=== PATIENT | female | born 1975 | race Caucasian/White ===

== ENCOUNTER 2018-04-25 18:18 | Inpatient (IN) ==
[2018-04-25] MEDS ORDERED: *HR* FentaNYL (PF) 100 MCG/2 ML VIAL IVP ONE (18:28)
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
[2018-04-25] MEDS ORDERED: *HR* HYDROmorphone (PF) 1 MG/ML SYRINGE IVP ONE (19:32)
[2018-04-25] MEDS ORDERED: Naloxone 0.4 MG/ML INJ IVP PRN (20:21)
[2018-04-25] MEDS ORDERED: *HR* OxyCODONE Immed Rel 5 MG TABLET PO PRN (20:21)
[2018-04-25] MEDS ORDERED: Ibuprofen 400 MG TABLET PO PRN (20:21)
[2018-04-25] MEDS ORDERED: Ondansetron 4 MG/2 ML VIAL IVP PRN (20:29)
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
[2018-04-25] MEDS: 0.9 % Sodium Chloride 1,000 ML IVC SCH (21:21)
[2018-04-25 21:42] LABS: Alanine Aminotransferase 14 Units/L (7-52); Albumin 4.2 g/dL (3.5-5.7); Albumin/Globulin Ratio 1.6 (1.1-2.2); Alkaline Phosphatase 73 Units/L (34-104); Aspartate Amino Transferase 17 Units/L (13-39); BUN/Creatinine Ratio 13 (6-26); Bilirubin,Total 0.4 mg/dL (0.3-1.0); Blood Urea Nitrogen 9 mg/dL (6-20); Carbon Dioxide 24 mEq/L (23-29); Chloride 104 mEq/L (98-107); Globulin 2.6 g/dL (2.4-3.5); Glucose 109 mg/dL (70-105); INR 1.1; Magnesium 1.7 mg/dL (1.6-2.6); Osmolality,Calculated 285 (280-300); Potassium 3.5 mEq/L (3.5-5.1); Prothrombin Time 11.9 Seconds (9.4-12.1); Sodium 138 mEq/L (136-145); Total Protein 6.8 g/dL (6.4-8.9); eGFR For African Americans > 60 (> 60); eGFR For Non-African Americans > 60 (> 60)
[2018-04-25 21:44] LABS: Activated Partial Thrombo Time 27.6 Seconds (26.0-36.0)
[2018-04-25 22:26] LABS: Basophils % 0.2 %; Hematocrit 39.5 % (35.3-44.9); Hemoglobin 13.3 g/dL (11.5-15.4); Immature Granulocytes % 1.6 % (0-4); Lymphocytes # 1.3 K/mcL (0.6-4.6); Lymphocytes % 7.2 %; Mean Corpuscular HGB Conc 33.7 g/dL (31.6-35.5); Mean Corpuscular Hemoglobin 28.9 pg (28.0-33.3); Mean Corpuscular Volume 85.7 fL (83.0-100.0); Mean Platelet Volume 10.5 fL (9.4-12.4); Monocytes # 0.8 K/mcL (0.0-1.3); Monocytes % 4.6 %; Neutrophils # 15.2 K/mcL (1.6-8.9); Platelet Count 194 K/mcL (140-400); Red Blood Count 4.61 M/mcL (3.82-4.97); Red Cell Distribution Width 13.2 % (11.5-14.5); Segmented Neutrophils % 86.4 %
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
[2018-04-26] MEDS: *HR* FentaNYL (PF) 100 MCG/2 ML VIAL IVP PRN ×6 (00:27→20:43)
[2018-04-26] MEDS: *HR* OxyCODONE Immed Rel 5 MG TABLET PO PRN ×4 (03:47→19:45)
[2018-04-26] MEDS ORDERED: *HR* Heparin 5,000 UNIT/ML VIAL SQ SCH (06:00)
[2018-04-26] MEDS: 0.9 % Sodium Chloride 1,000 ML IVC SCH (08:38)
--- NOTE | 2018-04-26 14:35 | Anesthesia Evaluation PreOp ---
<Domi Silveira - Last Filed: 04/26/18 14:33> Date of Encounter: 04/26/18 Time of Encounter: 14:33 - Past History Planned Operation: Left Femur IM nail Cardiac History: Denies any Significant Hx Pulmonary History: Denies Any Significant HX [employer] ROB[employer]ICIST History: Denies Any Significant HX Anesthesia History: No Prior Anesthetic Complications, Past Anesthesia (tubal ligation, BSO) Alcohol Use: rarely Drug use: none Medications and Allergies No Known Home Drugs 04/25/18 [History] 3 Allergy/AdvReac Type Severity Reaction Status Date / Time acetaminophen [From Vicodin] Allergy Itching Verified 04/25/18 18:30 hydrocodone [From Vicodin] Allergy Itching Verified 04/25/18 18:30 tramadol [From Ultram] Allergy Hives Verified 04/25/18 18:30 - Meds/Allergy Pre-op Review Medications Reviewed: Yes Allergies Reviewed: Yes Beta Blockers on Current Med List: No Anesthesia Results - Labs 04/25/18 21:04 04/25/18 21:04 Anesthesia Exam Vital Signs/O2 Sat, Most Current Temp Pulse Resp BP Pulse Ox 98.5 F 84 16 121/72 99 04/26/18 14:26 04/26/18 14:26 04/26/18 14:26 04/26/18 14:26 04/26/18 14:26 Height: 1.6m Weight: 80kg NPO (# of Hours): >8 - HEENT Pupil (Motor): Pupils equal, EOMI Mallampati: II Teeth: Normal Oral Opening: Greater than 3 - [employer]IST LOC: Oriented [employer] Motor: Normal RUE, Normal LUE, Normal RLE, Normal LLE, Normal Face [employer] Sensory: Normal: RUE, LUE, RLE, LLE, Face - Cardiac Rhythm: Regular - Pulmonary Breath Sounds: bilateral Clear Respiratory Effort: Symmetrical Anesthesia Assess/Plan ASA Score: 2 Modified Smithwick Scale for Level of Consciousness: Cooperative, oriented, and tranquil Anesthetic Plan: General Monitoring Plan: Standard Monitors Recovery Plan: PACU <Enoch Castano - Last Filed: 04/26/18 15:06> Date of Encounter: 04/26/18 - Past History Cardiac History: Denies any Significant Hx Pulmonary History: Denies Any Significant HX [employer]IST History: Denies Any Significant HX Anesthesia History: No Prior Anesthetic Complications, Past Anesthesia : No Test: Negative Alcohol Use: rarely Drug use: none - Meds/Allergy Pre-op Review Medications Reviewed: Yes Allergies Reviewed: Yes Beta Blockers on Current Med List: No Anesthesia Results - Labs 04/25/18 21:04 04/25/18 21:04 Laboratory Tests 04/26/18 14:37 Urine Test Negative Anesthesia Exam - HEENT Pupil (Motor): Pupils equal, EOMI Mallampati: II Teeth: Normal Oral Opening: Greater than 3 - [employer] ROB[employer]ICIST LOC: Oriented [employer]IST Motor: Normal RUE, Normal LUE, Normal RLE, Normal LLE, Normal Face [employer]IST Sensory: Normal: RUE, LUE, RLE, LLE, Face - Cardiac Rhythm: Regular JVD: No Carotid Bruit: No - Pulmonary Breath Sounds: bilateral Clear Respiratory Effort: Symmetrical Anesthesia Assess/Plan ASA Score: 2 Modified Smithwick Scale for Level of Consciousness: Cooperative, oriented, and tranquil Anesthetic Plan: General Monitoring Plan: Standard Monitors Recovery Plan: PACU (Discussed GA, agrees to proceed)
--- NOTE | 2018-04-26 14:44 | Internal Med Progress Note ---
Date of Encounter: 04/26/18 Time of Encounter: 14:42 - Assessment and plan (1) Left femoral shaft fracture Current Visit: Yes Status: Acute Assessment and plan: Orthopedic surgery consulted; appreciate input. Plan for intramedullary nailing of left femoral distal third diaphyseal fracture today. Will defer pain control, therapy, and diet post-op to orthopedic surgery. Recheck labwork in AM. Qualifiers: Encounter type: initial encounter Fracture type: closed Fracture morphology: comminuted Fracture alignment: displaced Qualified Code(s): S72.352A - Displaced comminuted fracture of shaft of left femur, initial encounter for closed fracture (2) DVT prophylaxis Current Visit: Yes Status: Acute Assessment and plan: Continue SCDs for now. Will defer starting anticoagulation post-op to orthopedic surgery. - Time Spent With Patient Total time spent is greater than 50% in coordination of care (as documented) at patient's floor/unit and/or counseling patient: less than 15 minutes - Subjective Interval history: Patient had no acute events overnight. She is having some "throbbing and cramping" in her left leg. She is on her way to the OR in a little bit for intramedullary nailing of left femoral distal third diaphyseal fracture by orthopedic surgery. She denies fever, chills, chest pain, SOB, nausea, vomiting , and abdominal pain. She has no other complaints at this time. - Constitutional Vitals: Temp Pulse Resp BP Pulse Ox 98.5 F 84 16 121/72 99 04/26/18 14:26 04/26/18 14:26 04/26/18 14:26 04/26/18 14:26 04/26/18 14:26 General appearance: Present: cooperative, A&O X 3, pleasant, no acute distress, answers questions appropriately - Respiratory Respiratory exam: Present: CTAB. Absent: accessory muscle use, rales, rhonchi, wheezes Additional comments: Normal WOB - Cardiovascular Cardiovascular exam: Present: RRR, +S1, +S2. Absent: diastolic murmur, gallop, rubs, systolic murmur Additional comments: No BLE edema - GI/Abdominal GI/Abdominal exam: Present: normal bowel sounds, soft. Absent: distended, hepatomegaly, mass, splenomegaly, tenderness - Extremities Exam Additional comments: Left leg in bandaging, decreased ROM due to pain - Psychiatric Psychiatric exam: Present: normal affect, normal mood. Absent: agitated, anxious, depressed - Skin Skin exam: Present: dry, intact, warm. Absent: cyanosis, rash Internal Medicine: Result - Labs CBC & Chem 7: 04/25/18 21:04 04/25/18 21:04 Labs: Short CBC 04/25/18 Range/Units 21:04 WBC 17.7 H (4.3-11.1) K/mcL Hgb 13.3 (11.5-15.4) g/dL Hct 39.5 (35.3-44.9) % Plt Count 194 (140-400) K/mcL Neutrophils # 15.2 H (1.6-8.9) K/mcL BMP 04/25/18 21:04 Sodium 138 Potassium 3.5 Chloride 104 Carbon Dioxide 24 BUN 9 Creatinine 0.70 Glucose 109 H Calcium 9.0 Liver Function 04/25/18 Range/Units 21:04 Total Bilirubin 0.4 (0.3-1.0) mg/dL AST 17 (13-39) Units/L ALT 14 (7-52) Units/L Alkaline Phosphatase 73 (34-104) Units/L Albumin 4.2 (3.5-5.7) g/dL - ABG Interpretation ABG results: PT/INR, D-dimer PT 11.9 Seconds (9.4-12.1) 04/25/18 21:04 - VTE Documentation of Mechanical Device: Intermittent pneumatic compression device Consult Discharge Plan - Plan Referrals: Carmen Hernandez MD [Primary Care Provider] -
[2018-04-26] MEDS ORDERED: Famotidine 20 MG/2 ML VIAL ONE (15:11)
[2018-04-26] MEDS ORDERED: Acetaminophen IV 1,000 MG/100 ML INFUS..BTL ONE (15:11)
[2018-04-26] MEDS ORDERED: *HR* FentaNYL (PF) 100 MCG/2 ML VIAL ONE (16:58)
[2018-04-26] MEDS ORDERED: *HR* Midazolam HCl 2 MG/2 ML VIAL ONE (16:58)
[2018-04-26] MEDS ORDERED: Lidocaine -MPF 2% 2 ML VIAL ONE (16:58)
[2018-04-26] MEDS ORDERED: *HR* Propofol 200 MG/20 ML VIAL IVP ONE (16:58)
[2018-04-26] MEDS ORDERED: *HR* HYDROmorphone 2 MG TABLET PO PRN (17:01)
[2018-04-26] MEDS ORDERED: *HR* OxyCODONE Immed Rel 5 MG TABLET PO PRN (17:01)
[2018-04-26] MEDS ORDERED: Ondansetron 4 MG/2 ML VIAL ONE (17:03)
[2018-04-26] MEDS ORDERED: Dexamethasone 4 MG/ML VIAL ONE (17:03)
[2018-04-26] MEDS ORDERED: Ketorolac 30 MG/ML VIAL ONE (17:30)
--- NOTE | 2018-04-26 18:39 | Operative Note ---
Date of procedure: 04/26/18 Pre-op diagnosis: Displaced, comminuted fracture distal third left femur Post-op diagnosis: same Procedure: 1. Retrograde intramedullary nailing left femur 2. Fluoroscopic guidance for IM nailing left femur Implants: Synthes 11 mm x 340 mm retrograde femoral nail with 2 distal and 1 proximal locking screw Complications: None Anesthesia: NEGIN Surgeon: Ciaran Conner Was there an human resources benefits assistant present: No Estimated blood loss (cc): 150 Specimen: None Condition: stable (None) Disposition: PACU Procedure in Detail: Gross findings: Preoperative x-rays revealed a displaced minimally comminuted fracture of the distal third of the left femur. This was past the isthmus and just as the distal femur started to flare. Fracture was able to reduced and excellent alignment, anatomic in the AP view and slightly offset on the lateral view. This was stabilized with a retrograde femoral nail which was placed without difficulty. Procedure: Patient was taken the operating room and while in the hospital bed was administered a general anesthesia. Once adequate level anesthesia had been obtained patient was transferred to the fracture table. Right lower extremity was positioned out of harm's way and the left lower extremity was placed with a padded post behind the popliteal fossa. Fluoroscopy was introduced and used to guide the initial reduction which was accomplished with hyperflexing the knee creating traction and improving alignment. The left thigh and femur were then prepped and draped in normal standard fashion for surgery. Incision was made from the inferior pole of the patella to the proximal tibia. Dissection was carried through the subtendinous tissue to the level of the medial retinaculum which was opened immediately adjacent to the patella tendon. The joint was exposed through the infrapatellar fat pad. The intercondylar notch was identified an entrance hole was created anterior to the intercondylar notch. A ball-tipped guidewire was then passed up the femoral canal across the fracture site and into the more proximal femur to the level of the lesser trochanter. Nail length was measured and a 340 mm nail length was selected. At this time the canal was sequentially reamed with flexible reamers up to and including a size 12.5 mm. This gave excellent endosteal chatter in the isthmus. An 11 mm nail was selected, this was placed on the insertion jig passed over the wire and across the fracture site and into the more proximal femur. Guidewire was removed. Nail length and position was verified. At this time to distal locking screws were placed from a lateral to medial direction utilizing the nail guide. Fracture was allowed to compress. A single screw was then placed proximally allowing for compression. This is performed by freehand technique. Position of the implant and fracture were then all verified with multiplane are fluoroscopy. Wounds now irrigated and closed. The scope she irrigated with saline solution. The retinaculum was closed with running #1 Vicryl. Subcutaneous tissue was closed with multiple inverted interrupted 2-0 undyed Vicryl followed by skin approximation of the incision and the stab wounds for the screw insertions with stainless steel clips. Sterile dressings consisting of bacitracin Adaptic 4 x 4 's Kerlix Elfego wraps are applied with a Band-Aid applied proximal. Patient was now transferred from the operating table hospital bed, awakened from anesthesia , extubated and then transported to the postanesthesia care unit in stable and satisfactory condition. All sponge needle evidence for counts are correct. No specimens are sent for pathology.
--- NOTE | 2018-04-26 19:03 | Anesthesia Evaluation Post Op ---
Date of Encounter: 04/26/18 Time of Encounter: 19:00 - Vital Signs Vital Signs: Vital Signs/O2 Sat/Glucose, Most Current Temp Pulse Resp BP Pulse Ox 04/26/18 18:48 99.6 F 101 16 137/67 96 04/26/18 18:38 99.6 F 92 12 136/63 93 04/26/18 18:28 101 12 135/60 94 04/26/18 18:18 108 18 123/74 94 04/26/18 18:08 97.1 F L 96 20 130/84 98 - Lungs Lungs: Clear Ascult./Percussion - Airway Airway: Non-obstructed - Cardiovascular Regular Rate - Mental Status Mental Status: Alert & Oriented, Answers Appropriately - Pain Pain Scale: 0 - Nausea Vomiting Nausea Vomiting: Not Present - Hydration Hydration: Ice chips - Discharge PostOp Status: Transfer Patient to floor
[2018-04-26] MEDS ORDERED: Naloxone 0.4 MG/ML INJ IVP PRN (19:08)
[2018-04-26] MEDS ORDERED: Ondansetron 4 MG/2 ML VIAL IVP PRN (19:08)
[2018-04-27] MEDS ORDERED: ceFAZolin 2,000 MG in Water for inj. (sterile) 20 ML 10 ML IVP SCH
[2018-04-27] MEDS: *HR* FentaNYL (PF) 100 MCG/2 ML VIAL IVP PRN ×3 (00:37→16:57)
[2018-04-27 02:25] LABS: Basophils % 0.1 %; Hematocrit 38.8 % (35.3-44.9); Immature Granulocytes % 1.3 % (0-4); Lymphocytes # 0.8 K/mcL (0.6-4.6); Lymphocytes % 5.8 %; Mean Corpuscular HGB Conc 33.5 g/dL (31.6-35.5); Mean Corpuscular Volume 86.6 fL (83.0-100.0); Mean Platelet Volume 10.2 fL (9.4-12.4); Monocytes # 0.3 K/mcL (0.0-1.3); Monocytes % 2.3 %; Neutrophils # 12.1 K/mcL (1.6-8.9); Platelet Count 173 K/mcL (140-400); Red Blood Count 4.48 M/mcL (3.82-4.97); Segmented Neutrophils % 90.5 %
[2018-04-27 02:43] LABS: BUN/Creatinine Ratio 8 (6-26); Blood Urea Nitrogen 7 mg/dL (6-20); Calcium 8.8 mg/dL (8.6-10.3); Carbon Dioxide 23 mEq/L (23-29); Chloride 102 mEq/L (98-107); Glucose 212 mg/dL (70-105); Osmolality,Calculated 284 (280-300); Potassium 4.1 mEq/L (3.5-5.1); Sodium 135 mEq/L (136-145); eGFR For African Americans > 60 (> 60); eGFR For Non-African Americans > 60 (> 60)
[2018-04-27] MEDS: *HR* OxyCODONE Immed Rel 5 MG TABLET PO PRN ×4 (04:09→21:00)
[2018-04-27] MEDS: Ibuprofen 400 MG TABLET PO PRN ×3 (07:56→21:00)
--- NOTE | 2018-04-27 10:22 | Orthopedics Progress Note ---
Date of Encounter: 04/27/18 Time of Encounter: 10:19 Subjective Principal diagnosis: Left femur fracture Interval history: 04/27/2018. Patient postop day #1 (less than 24 hours) from IM nailing of left femur fracture. Patient has been out of bed to chair. Having significant pain with poor pain control thus far. Complains of a burning sensation about the knee. Vital signs are stable. Patient is afebrile. Dressings are clean and dry. Distal neurovascular exam is intact. Hemoglobin is 13. White blood cell count is elevated but lower than preop. Platelet count is normal. Impression: POD #1 retrograde nailing left femur fracture Recommendation: Discussed with the patient that we can modify her medications but we will probably not make her pain-free, rather we discussed pain management. We will shortening her dosing interval 2 every 4 hours for oxycodone and increase her range from 5-10 mg. Discuss with her that she needs to be conscientious of about being upright either in the chair or ambulatory. Objective Vital signs: Vital Signs Temp Pulse Resp BP Pulse Ox 04/27/18 08:02 96 04/27/18 06:35 98.2 F 87 16 134/68 96 04/27/18 03:30 98.3 F 99 16 130/65 95 04/26/18 23:27 98.6 F 88 16 120/82 95 04/26/18 21:40 98.6 F 114 14 119/65 93 04/26/18 20:31 98.6 F 90 16 122/85 95 04/26/18 19:52 95 04/26/18 19:37 99.3 F 97 16 127/85 95 04/26/18 19:05 98.7 F 102 16 142/84 92 04/26/18 18:48 99.6 F 101 16 137/67 96 04/26/18 18:38 99.6 F 92 12 136/63 93 04/26/18 18:28 101 12 135/60 94 04/26/18 18:18 108 18 123/74 94 04/26/18 18:08 97.1 F L 96 20 130/84 98 04/26/18 14:26 98.5 F 84 16 121/72 99 Intake and Output 04/26/18 04/27/18 04/27/18 23:59 07:59 15:59 Intake Total 1400 / 1400 Output Total 150 / 150 1400 / 1400 Balance -150 / -150 0 / 0 Intake: IV Fluids 1100 / 1100 Ancef 2,000 MG In 0.9 % Sodium 100 / 100 Chloride 100 ML @ 200 mls/hr IVPB Q8HR YA Rx#:[id number] Oral 300 / 300 Output: Estimated Blood Loss 150 / 150 Catheter 1400 / 1400 - Labs CBC & BMP: 04/27/18 01:05 04/27/18 01:05 Labs: Abnormal lab results WBC 13.4 K/mcL (4.3-11.1) H 04/27/18 01:05 Neutrophils # 12.1 K/mcL (1.6-8.9) H 04/27/18 01:05 Sodium 135 mEq/L (136-145) L 04/27/18 01:05 Glucose 212 mg/dL (70-105) H 04/27/18 01:05 - VTE Documentation of Mechanical Device: Intermittent pneumatic compression device Consult Discharge Plan - Plan Referrals: Carmen Hernandez MD [Primary Care Provider] -
[2018-04-27] MEDS ORDERED: *HR* OxyCODONE Immed Rel 5 MG TABLET PO SCH (12:00)
--- NOTE | 2018-04-27 13:49 | Internal Med Progress Note ---
Date of Encounter: 04/27/18 Time of Encounter: 13:47 - Assessment and plan (1) Left femoral shaft fracture Current Visit: Yes Status: Acute Assessment and plan: Orthopedic surgery consulted; appreciate input. POD #1 s/p intramedullary nailing of left femoral distal third diaphyseal fracture. Will defer pain control to orthopedics. Pain is now better controlled. Continue PT/OT. Recheck labwork in AM. Plan for discharge home once pain better controlled and cleared by orthopedic surgery. Qualifiers: Encounter type: initial encounter Fracture type: closed Fracture morphology: comminuted Fracture alignment: displaced Qualified Code(s): S72.352A - Displaced comminuted fracture of shaft of left femur, initial encounter for closed fracture (2) DVT prophylaxis Current Visit: Yes Status: Acute Assessment and plan: Start lovenox 40 mg SQ QD. - Time Spent With Patient Total time spent is greater than 50% in coordination of care (as documented) at patient's floor/unit and/or counseling patient: less than 15 minutes - Subjective Interval history: Patient had no acute events overnight. She is POD #1 s/p IM nailing of left femur fracture. She states that she still has some pain, but improved from this morning, after pain medication frequency was increased. She denies fever, chills, chest pain, SOB, nausea, vomiting, and abdominal pain. She has no other complaints at this time. - Constitutional Vitals: Temp Pulse Resp BP Pulse Ox 98.2 F 87 16 134/68 96 04/27/18 06:35 04/27/18 06:35 04/27/18 06:35 04/27/18 06:35 04/27/18 08:02 General appearance: Present: cooperative, A&O X 3, pleasant, no acute distress, answers questions appropriately - Respiratory Respiratory exam: Present: CTAB. Absent: accessory muscle use, rales, rhonchi, wheezes Additional comments: Normal WOB - Cardiovascular Cardiovascular exam: Present: RRR, +S1, +S2. Absent: diastolic murmur, gallop, rubs, systolic murmur Additional comments: No BLE edema - GI/Abdominal GI/Abdominal exam: Present: normal bowel sounds, soft. Absent: distended, hepatomegaly, mass, splenomegaly, tenderness - Extremities Exam Additional comments: Left hip/leg in bandaging - Psychiatric Psychiatric exam: Present: normal affect, normal mood. Absent: agitated, anxious, depressed - Skin Skin exam: Present: dry, warm. Absent: cyanosis, erythema, rash Internal Medicine: Result - Labs CBC & Chem 7: 04/27/18 01:05 04/27/18 01:05 Labs: Short CBC 04/27/18 Range/Units 01:05 WBC 13.4 H (4.3-11.1) K/mcL Hgb 13.0 (11.5-15.4) g/dL Hct 38.8 (35.3-44.9) % Plt Count 173 (140-400) K/mcL Neutrophils # 12.1 H (1.6-8.9) K/mcL BMP 04/27/18 01:05 Sodium 135 L Potassium 4.1 Chloride 102 Carbon Dioxide 23 BUN 7 Creatinine 0.91 Glucose 212 H Calcium 8.8 - ABG Interpretation ABG results: PT/INR, D-dimer PT 11.9 Seconds (9.4-12.1) 04/25/18 21:04 - Impressions Impressions Femur X-Ray 04/26/18 15:50 IMPRESSION: Intraprocedural fluoroscopic spot images as above. See separate procedure report for more information. D/ / Facundo Black MD / Facundo Black MD Interpreting Provider: Facundo Black MD Fluoroscopy 04/26/18 15:50 IMPRESSION: Intraprocedural fluoroscopic spot images as above. See separate procedure report for more information. D/ / Facundo Black MD / Facundo Black MD Interpreting Provider: Facundo Black MD Consult Discharge Plan - Plan Referrals: Carmen Hernandez MD [Primary Care Provider] -
[2018-04-27] MEDS: *HR* Enoxaparin 40 MG/0.4 ML SYRINGE SQ SCH (14:25)
[2018-04-28 01:05] LABS: Basophils % 0.2 %; Eosinophils # 0.1 K/mcL (0.0-0.6); Eosinophils % 0.7 %; Hematocrit 31.9 % (35.3-44.9); Hemoglobin 10.4 g/dL (11.5-15.4); Immature Granulocytes % 1.5 % (0-4); Lymphocytes # 2.6 K/mcL (0.6-4.6); Lymphocytes % 22.4 %; Mean Corpuscular HGB Conc 32.6 g/dL (31.6-35.5); Mean Corpuscular Volume 85.8 fL (83.0-100.0); Monocytes # 0.7 K/mcL (0.0-1.3); Monocytes % 6.3 %; Neutrophils # 7.9 K/mcL (1.6-8.9); Platelet Count 150 K/mcL (140-400); Red Blood Count 3.72 M/mcL (3.82-4.97); Red Cell Distribution Width 13.3 % (11.5-14.5); Segmented Neutrophils % 68.9 %
[2018-04-28 01:22] LABS: BUN/Creatinine Ratio 17 (6-26); Blood Urea Nitrogen 13 mg/dL (6-20); Calcium 8.4 mg/dL (8.6-10.3); Carbon Dioxide 24 mEq/L (23-29); Chloride 106 mEq/L (98-107); Glucose 121 mg/dL (70-105); Osmolality,Calculated 287 (280-300); Potassium 3.5 mEq/L (3.5-5.1); Sodium 138 mEq/L (136-145); eGFR For African Americans > 60 (> 60); eGFR For Non-African Americans > 60 (> 60)
[2018-04-28] MEDS: *HR* OxyCODONE Immed Rel 5 MG TABLET PO PRN ×5 (02:33→23:19)
[2018-04-28] MEDS: *HR* FentaNYL (PF) 100 MCG/2 ML VIAL IVP PRN ×2 (06:26→11:58)
[2018-04-28] MEDS: Ibuprofen 400 MG TABLET PO PRN ×3 (06:51→21:12)
[2018-04-28] MEDS: *HR* Enoxaparin 40 MG/0.4 ML SYRINGE SQ SCH (08:39)
--- NOTE | 2018-04-28 13:31 | Orthopedics Progress Note ---
Date of Encounter: 04/28/18 Time of Encounter: 13:27 Subjective Principal diagnosis: Left femur fracture Interval history: 04/27/2018. Patient postop day #1 (less than 24 hours) from IM nailing of left femur fracture. Patient has been out of bed to chair. Having significant pain with poor pain control thus far. Complains of a burning sensation about the knee. Vital signs are stable. Patient is afebrile. Dressings are clean and dry. Distal neurovascular exam is intact. Hemoglobin is 13. White blood cell count is elevated but lower than preop. Platelet count is normal. Impression: POD #1 retrograde nailing left femur fracture Recommendation: Discussed with the patient that we can modify her medications but we will probably not make her pain-free, rather we discussed pain management. We will shortening her dosing interval 2 every 4 hours for oxycodone and increase her range from 5-10 mg. Discuss with her that she needs to be conscientious of about being upright either in the chair or ambulatory. 04/28/2018. Patient POD #2 IM nailing left femur fracture. Patient continues to complain of significant amount of pain. Patient has been doing little range of motion exercises other than some ankle work. Complaining of a sensation of something moving along the medial side of the knee. Discussed the surgical procedure in the appearance of the implants with the patient. Vital signs are stable. Patient is afebrile. All incisions are clean dry and healthy. No knee effusion. Minor fullness in the thigh. Hemoglobin has dropped to 10.4. White cell count has dropped to 11.5. Platelet count remains normal though trending down, currently 150. Impression: POD #2 retrograde IM nailing left femur Recommendation: Discussed with the patient she has to be very aggressive in working on range of motion of her hip and knee as well as her ankle. He also began had a long discussion of pain management. Have encouraged her to not utilize parenteral narcotics but to consistently use oral medications as is the only way she is going be able to go home. Also discussed with the patient that she may need a short-term rehabilitation stay due to her limited ambulation ability at this time and the possibility of not having adequate help at home. environmental services technician to work potential discharge options. Objective Vital signs: Vital Signs Temp Pulse Resp BP Pulse Ox 04/28/18 08:43 96 04/28/18 06:27 97.5 F L 91 17 116/73 96 04/28/18 03:23 97.7 F 94 16 108/64 95 04/27/18 23:01 98.4 F 109 16 128/69 97 Intake and Output 04/27/18 04/28/18 04/28/18 23:59 07:59 15:59 Intake Total 0 / 0 200 / 200 240 / 240 Balance 0 / 0 200 / 200 240 / 240 Intake: Oral 0 / 0 200 / 200 240 / 240 Other: Meal Breakfast Percent of Meal Consumed 50% # Voids 1 1 Incision: clean and dry - Labs CBC & BMP: 04/28/18 00:38 04/28/18 00:38 Labs: Abnormal lab results WBC 11.5 K/mcL (4.3-11.1) H 04/28/18 00:38 RBC 3.72 M/mcL (3.82-4.97) L 04/28/18 00:38 Hgb 10.4 g/dL (11.5-15.4) L D 04/28/18 00:38 Hct 31.9 % (35.3-44.9) L 04/28/18 00:38 Glucose 121 mg/dL (70-105) H 04/28/18 00:38 Calcium 8.4 mg/dL (8.6-10.3) L 04/28/18 00:38 - VTE Documentation of Mechanical Device: Intermittent pneumatic compression device Consult Discharge Plan - Plan Referrals: Carmen Hernandez MD [Primary Care Provider] -
--- NOTE | 2018-04-28 13:43 | Internal Med Progress Note ---
Date of Encounter: 04/28/18 Time of Encounter: 13:38 - Assessment and plan (1) Left femoral shaft fracture Current Visit: Yes Status: Acute Assessment and plan: Orthopedic surgery consulted; appreciate input. POD #2 s/p intramedullary nailing of left femoral distal third diaphyseal fracture. Will defer pain control to orthopedics. Pain is now better controlled. Continue PT/OT. Recheck labwork in AM. Discussed case with Dr. Conner today; plan for discharge to acute rehab once pain better controlled and cleared by orthopedic surgery. SW consulted for placement. Qualifiers: Encounter type: initial encounter Fracture type: closed Fracture morphology: comminuted Fracture alignment: displaced Qualified Code(s): S72.352A - Displaced comminuted fracture of shaft of left femur, initial encounter for closed fracture (2) Anemia Current Visit: Yes Status: Acute Assessment and plan: H/H trending down. Asymptomatic at this time. Transfuse for hemoglobin < 7.0 and/or symptomatic. Recheck CBC in AM. Consider holding lovenox if H/H continues to drop. Qualifiers: Anemia type: unspecified type Qualified Code(s): D64.9 - Anemia, unspecified (3) DVT prophylaxis Current Visit: Yes Status: Acute Assessment and plan: Continue SQ lovenox. - Time Spent With Patient Total time spent is greater than 50% in coordination of care (as documented) at patient's floor/unit and/or counseling patient: less than 15 minutes - Subjective Interval history: Patient had no acute events overnight. She is POD #2 s/p IM nailing of left femur fracture. She states that she still has some pain, but has been able to get up to chair today. She denies fever, chills, chest pain, SOB, nausea, vomiting, and abdominal pain. She has no other complaints at this time. - Constitutional Vitals: Temp Pulse Resp BP Pulse Ox 97.5 F L 91 17 116/73 96 04/28/18 06:27 04/28/18 06:27 04/28/18 06:27 04/28/18 06:27 04/28/18 08:43 General appearance: Present: cooperative, A&O X 3, pleasant, no acute distress, answers questions appropriately - Respiratory Respiratory exam: Present: CTAB. Absent: accessory muscle use, rales, rhonchi, wheezes Additional comments: Normal WOB - Cardiovascular Cardiovascular exam: Present: RRR, +S1, +S2. Absent: diastolic murmur, gallop, rubs, systolic murmur Additional comments: No BLE edema - GI/Abdominal GI/Abdominal exam: Present: normal bowel sounds, soft. Absent: distended, hepatomegaly, mass, splenomegaly, tenderness - Psychiatric Psychiatric exam: Present: normal affect, normal mood. Absent: agitated, anxious, depressed - Skin Skin exam: Present: dry, intact, warm. Absent: cyanosis, rash Internal Medicine: Result - Labs CBC & Chem 7: 04/28/18 00:38 04/28/18 00:38 Labs: Short CBC 04/28/18 Range/Units 00:38 WBC 11.5 H (4.3-11.1) K/mcL Hgb 10.4 L D (11.5-15.4) g/dL Hct 31.9 L (35.3-44.9) % Plt Count 150 (140-400) K/mcL Neutrophils # 7.9 (1.6-8.9) K/mcL BMP 04/28/18 00:38 Sodium 138 Potassium 3.5 Chloride 106 Carbon Dioxide 24 BUN 13 Creatinine 0.76 Glucose 121 H Calcium 8.4 L - ABG Interpretation ABG results: PT/INR, D-dimer PT 11.9 Seconds (9.4-12.1) 04/25/18 21:04 Consult Discharge Plan - Plan Referrals: Carmen Hernandez MD [Primary Care Provider] -
[2018-04-29 02:38] LABS: Basophils % 0.4 %; Eosinophils # 0.2 K/mcL (0.0-0.6); Eosinophils % 1.8 %; Immature Granulocytes % 3.6 % (0-4); Lymphocytes # 2.8 K/mcL (0.6-4.6); Lymphocytes % 30.7 %; Mean Corpuscular HGB Conc 33.3 g/dL (31.6-35.5); Mean Corpuscular Hemoglobin 29.1 pg (28.0-33.3); Mean Corpuscular Volume 87.3 fL (83.0-100.0); Mean Platelet Volume 9.7 fL (9.4-12.4); Monocytes # 0.5 K/mcL (0.0-1.3); Monocytes % 5.8 %; Neutrophils # 5.2 K/mcL (1.6-8.9); Platelet Count 158 K/mcL (140-400); Red Blood Count 3.78 M/mcL (3.82-4.97); Red Cell Distribution Width 13.3 % (11.5-14.5); Segmented Neutrophils % 57.7 %
[2018-04-29] MEDS: Ibuprofen 400 MG TABLET PO PRN (02:53)
[2018-04-29 03:33] LABS: BUN/Creatinine Ratio 25 (6-26); Blood Urea Nitrogen 16 mg/dL (6-20); Calcium 8.7 mg/dL (8.6-10.3); Carbon Dioxide 27 mEq/L (23-29); Chloride 101 mEq/L (98-107); Glucose 118 mg/dL (70-105); Osmolality,Calculated 284 (280-300); Potassium 3.5 mEq/L (3.5-5.1); Sodium 136 mEq/L (136-145); eGFR For African Americans > 60 (> 60); eGFR For Non-African Americans > 60 (> 60)
[2018-04-29] MEDS: *HR* OxyCODONE Immed Rel 5 MG TABLET PO PRN ×5 (05:12→22:50)
[2018-04-29] MEDS: *HR* Enoxaparin 40 MG/0.4 ML SYRINGE SQ SCH (09:20)
--- NOTE | 2018-04-29 16:29 | Discharge Summary ---
- NOTES TO OUTPATIENT PROVIDER Notes to Outpatient Provider: Follow up with acute rehab physician in 2-3 days after discharge. Recheck BMP and CBC at that time. Follow up with orthopedic surgery as directed. Date of Encounter: 04/29/18 Time of Encounter: 16:27 - Discharge Diagnosis (1) Left femoral shaft fracture Priority: Primary Status: Acute Qualifiers: Encounter type: initial encounter Fracture type: closed Fracture morphology: comminuted Fracture alignment: displaced Qualified Code(s): S72.352A - Displaced comminuted fracture of shaft of left femur, initial encounter for closed fracture (2) Anemia Priority: Secondary Status: Acute Qualifiers: Anemia type: unspecified type Qualified Code(s): D64.9 - Anemia, unspecified (3) DVT prophylaxis Priority: Secondary Status: Acute Hospital course: Ms. Appiah is a 43 year old female admitted for left femoral shaft fracture. She was admitted to orthopedic floor. Orthopedic surgery was consulted. Pain was controlled. She was taken to OR for intramedullary nailing of left femoral distal third diaphyseal fracture. She had some increased pain after surgery, and orthopedic surgery managed by changing pain medication regimen. PT/OT were consulted. She was encouraged to work on ROM exercises. It was determined that she would need short-term rehabilitation stay given her limited ambulation ability at this time and the possibility of not having adequate help at home. SW is working on placement. She is medically cleared for discharge today. She will follow up with acute rehab physician in 2-3 days after discharge. Repeat BMP and CBC can be checked at that time. She will follow up with orthopedic surgery as directed. Patient has met maximum benefit of this hospitalization and will be conditionally discharged to acute inpatient rehabilitation facility pending insurance approval in stable condition. Discharge discussed with: patient, family, nurse, social work - Time Spent with Patient Total time spent providing and/or coordinating discharge services: Greater than 30 minutes - Discharge Medications Prescriptions: OxyCODONE Immed Rel [Roxicodone 5 MG] 5 mg PO Q4HR PRN 4 Days #24 tablet PRN Reason: Severe Pain Ibuprofen [Motrin] 600 mg PO Q6HR PRN 4 Days #16 tablet PRN Reason: Mild Pain/Fever Home Medications: Ibuprofen [Motrin] 600 mg PO Q6HR PRN 4 Days #16 tablet 04/29/18 [Rx] OxyCODONE Immed Rel [Roxicodone 5 MG] 5 mg PO Q4HR PRN 4 Days #24 tablet [Rx] Allergies/Adverse Reactions: 3 Allergy/AdvReac Type Severity Reaction Status Date / Time acetaminophen [From Vicodin] Allergy Itching Verified 04/25/18 18:30 hydrocodone [From Vicodin] Allergy Itching Verified 04/25/18 18:30 tramadol [From Ultram] Allergy Hives Verified 04/25/18 18:30 Date of admission: 04/27/18 18:54 Primary care physician: Carmen Hernandez Consults: Orthopedic Surgery 04/28/18 13:44 Consult to Graphic Design Intern [CONS] Routine Reason for SW Consult: Acute Rehab Placement Discharging clinician: Donovan Gary Anticipated date of discharge: 04/29/18 - Constitutional Vitals: Temp Pulse Resp BP Pulse Ox 98.4 F 96 18 122/82 96 04/29/18 15:08 04/29/18 15:08 04/29/18 15:08 04/29/18 15:08 04/29/18 15:08 General appearance: Present: cooperative, A&O X 3, pleasant, no acute distress, answers questions appropriately - Respiratory Respiratory exam: Present: CTAB. Absent: accessory muscle use, rales, rhonchi, wheezes Additional comments: Normal WOB - Cardiovascular Cardiovascular exam: Present: RRR, +S1, +S2. Absent: diastolic murmur, gallop, rubs, systolic murmur Additional comments: No BLE edema - GI/Abdominal GI/Abdominal exam: Present: normal bowel sounds, soft. Absent: distended, hepatomegaly, mass, splenomegaly, tenderness - Psychiatric Psychiatric exam: Present: normal affect, normal mood. Absent: agitated, anxious, depressed - Skin Skin exam: Present: dry, warm. Absent: cyanosis, erythema, rash - Patient Status Disposition: Transfer Inpatient Rehab Fac Condition: Good Overall status at discharge: patient is progressing back to baseline - Discharge Instructions Follow Up With: Carmen Hernandez MD [Primary Care Provider] - Additional Instructions: Follow up with acute rehab physician in 2-3 days after discharge. Recheck BMP and CBC at that time. Follow up with orthopedic surgery as directed. - Diet and Activity Activity: as per physical therapy Diet: regular diet
--- NOTE | 2018-04-29 16:41 | Physician Discharge Referral ---
ExtendedCare Referral Info Transfer To: Acute Inpatient Rehabilitation Facility Provider in Charge after Transfer: Other (Acute Rehab Physician) Institutional Level of Care: Skilled - Diagnosis (1) Left femoral shaft fracture Priority: Primary Status: Acute (2) Anemia Priority: Secondary Status: Acute (3) DVT prophylaxis Priority: Secondary Status: Acute Expected Duration of Placement: 4-6 weeks Prognosis: Good Aware of Diagnosis: Patient, Family Aware of Prognosis: Patient, Family - Transfer Medications Prescriptions: OxyCODONE Immed Rel [Roxicodone 5 MG] 5 mg PO Q4HR PRN 4 Days #24 tablet PRN Reason: Severe Pain Ibuprofen [Motrin] 600 mg PO Q6HR PRN 4 Days #16 tablet PRN Reason: Mild Pain/Fever Home Medications: Ibuprofen [Motrin] 600 mg PO Q6HR PRN 4 Days #16 tablet 04/29/18 [Rx] OxyCODONE Immed Rel [Roxicodone 5 MG] 5 mg PO Q4HR PRN 4 Days #24 tablet [Rx] Allergies/Adverse Reactions: 3 Allergy/AdvReac Type Severity Reaction Status Date / Time acetaminophen [From Vicodin] Allergy Itching Verified 04/25/18 18:30 hydrocodone [From Vicodin] Allergy Itching Verified 04/25/18 18:30 tramadol [From Ultram] Allergy Hives Verified 04/25/18 18:30 - Respiratory Orders None Smoking Cessation: Smoking cessation has been advised. For more information, call the [place] Tobacco Quit Line at 1-490-QWNL-NOW. - Lab Orders Lab Orders: CBC (in 2-3 days after discharge), Other (include drug levels w/ frequency) (BMP in 2-3 days after discharge) - Advance Directives Code Status: Full Code - Mobility Orders Other (Per physical therapy) - Rehabiliation Orders Rehab Potential: Good Rehab Orders: ROM Exercises, Evaluation for Physical Therapy, Evaluation for Occupational Therapy - Diet Orders Regular CERTIFICATION: I certify that the transfer of the above named patient to an Extended Care Facility is necessary for the continuing treatment of the diagnosis listed. The above information is true and accurate reflection of patient's current condition. Confidential - Redisclosure prohibited without a patient's written consent.
--- NOTE | 2018-04-29 19:38 | Orthopedics Progress Note ---
Date of Encounter: 04/29/18 Time of Encounter: 19:33 Subjective Principal diagnosis: Left femur fracture Interval history: 04/27/2018. Patient postop day #1 (less than 24 hours) from IM nailing of left femur fracture. Patient has been out of bed to chair. Having significant pain with poor pain control thus far. Complains of a burning sensation about the knee. Vital signs are stable. Patient is afebrile. Dressings are clean and dry. Distal neurovascular exam is intact. Hemoglobin is 13. White blood cell count is elevated but lower than preop. Platelet count is normal. Impression: POD #1 retrograde nailing left femur fracture Recommendation: Discussed with the patient that we can modify her medications but we will probably not make her pain-free, rather we discussed pain management. We will shortening her dosing interval 2 every 4 hours for oxycodone and increase her range from 5-10 mg. Discuss with her that she needs to be conscientious of about being upright either in the chair or ambulatory. 04/28/2018. Patient POD #2 IM nailing left femur fracture. Patient continues to complain of significant amount of pain. Patient has been doing little range of motion exercises other than some ankle work. Complaining of a sensation of something moving along the medial side of the knee. Discussed the surgical procedure in the appearance of the implants with the patient. Vital signs are stable. Patient is afebrile. All incisions are clean dry and healthy. No knee effusion. Minor fullness in the thigh. Hemoglobin has dropped to 10.4. White cell count has dropped to 11.5. Platelet count remains normal though trending down, currently 150. Impression: POD #2 retrograde IM nailing left femur Recommendation: Discussed with the patient she has to be very aggressive in working on range of motion of her hip and knee as well as her ankle. He also began had a long discussion of pain management. Have encouraged her to not utilize parenteral narcotics but to consistently use oral medications as is the only way she is going be able to go home. Also discussed with the patient that she may need a short-term rehabilitation stay due to her limited ambulation ability at this time and the possibility of not having adequate help at home. sales representative facility services to work potential discharge options. 04/29/2018. Patient POD #3 IM nailing left femur fracture. Patient appears remarkably improved today. Pain appears to be under much better control. Patient is able to do more of her exercises. Vital signs are stable patient is afebrile. Incisions are healthy clean and dry with intact staple lines. Hemoglobin is 11.0. Platelet count normal. I mpression: POD #3 retrograde IM nailing left femur Recommendation: Patient is stable from an orthopedics point of view. She needs to continue to aggressively work on range of motion and strengthening. Patient can shower if her incisions remained clean and dry. Would code with bacitracin or Neosporin prior to showers. Can do daily wound care with peroxide and Neosporin or bacitracin. No dressing is needed. Patient can be 25 pound weightbearing on the left lower extremity. We will need follow-up with me in about 2 weeks' time or sooner should any problems arise. Objective Vital signs: Vital Signs Temp Pulse Resp BP Pulse Ox 04/29/18 18:57 98.3 F 103 16 131/70 98 04/29/18 15:08 98.4 F 96 18 122/82 96 04/29/18 10:53 98.2 F 93 18 113/74 94 04/29/18 06:40 97.8 F 91 18 119/76 98 04/29/18 04:42 97.9 F 82 16 112/70 98 04/28/18 23:22 98.5 F 91 18 124/64 93 Intake and Output 04/29/18 04/29/18 04/29/18 07:59 15:59 23:59 Intake Total 0 / 0 480 / 480 400 / 400 Output Total 0 / 0 Balance 0 / 0 480 / 480 400 / 400 Intake: Oral 0 / 0 240 / 240 400 / 400 Other 240 / 240 Output: Urine 0 / 0 Other: Meal Lunch Percent of Meal Consumed 100% # Voids 3 1 - Labs CBC & BMP: 04/29/18 02:05 04/29/18 02:05 Labs: Abnormal lab results RBC 3.78 M/mcL (3.82-4.97) L 04/29/18 02:05 Hgb 11.0 g/dL (11.5-15.4) L 04/29/18 02:05 Hct 33.0 % (35.3-44.9) L 04/29/18 02:05 Glucose 118 mg/dL (70-105) H 04/29/18 02:05 - VTE Documentation of Mechanical Device: Intermittent pneumatic compression device Consult Discharge Plan - Plan Additional Instructions: Follow up with acute rehab physician in 2-3 days after discharge. Recheck BMP and CBC at that time. Follow up with orthopedic surgery as directed. Referrals: Carmen Hernandez MD [Primary Care Provider] - Prescriptions: OxyCODONE Immed Rel [Roxicodone 5 MG] 5 mg PO Q4HR PRN 4 Days #24 tablet PRN Reason: Severe Pain Ibuprofen [Motrin] 600 mg PO Q6HR PRN 4 Days #16 tablet PRN Reason: Mild Pain/Fever
[2018-04-30 02:15] LABS: Basophils # 0.1 K/mcL (0.0-0.2); Basophils % 0.5 %; Eosinophils # 0.1 K/mcL (0.0-0.6); Eosinophils % 1.3 %; Hematocrit 31.8 % (35.3-44.9); Hemoglobin 10.6 g/dL (11.5-15.4); Lymphocytes # 2.5 K/mcL (0.6-4.6); Lymphocytes % 24.5 %; Mean Corpuscular HGB Conc 33.3 g/dL (31.6-35.5); Mean Corpuscular Hemoglobin 28.4 pg (28.0-33.3); Mean Corpuscular Volume 85.3 fL (83.0-100.0); Mean Platelet Volume 9.7 fL (9.4-12.4); Monocytes # 0.6 K/mcL (0.0-1.3); Monocytes % 5.4 %; Neutrophils # 6.6 K/mcL (1.6-8.9); Platelet Count 204 K/mcL (140-400); Red Blood Count 3.73 M/mcL (3.82-4.97); Red Cell Distribution Width 13.2 % (11.5-14.5); Segmented Neutrophils % 65.3 %
[2018-04-30 02:44] LABS: BUN/Creatinine Ratio 24 (6-26); Blood Urea Nitrogen 16 mg/dL (6-20); Carbon Dioxide 28 mEq/L (23-29); Chloride 100 mEq/L (98-107); Glucose 140 mg/dL (70-105); Osmolality,Calculated 283 (280-300); Sodium 135 mEq/L (136-145); eGFR For African Americans > 60 (> 60); eGFR For Non-African Americans > 60 (> 60)
[2018-04-30] MEDS: *HR* OxyCODONE Immed Rel 5 MG TABLET PO PRN ×3 (03:11→12:33)
[2018-04-30] MEDS: *HR* Enoxaparin 40 MG/0.4 ML SYRINGE SQ SCH (08:30)
[2018-04-30] MEDS ORDERED: Neosporin OINT 15 GM TUBE TP SCH (10:45)
[2018-04-30 12:55] VITALS: BP 142/90
--- NOTE | 2018-04-30 18:57 | Internal Med Progress Note ---
Date of Encounter: 04/30/18 Time of Encounter: 12:00 - Assessment and plan (1) Left femoral shaft fracture Status: Acute Assessment and plan: Fracture s/p intramedullary nailing of left femoral distal third diaphyseal fracture Orthopedic on board. Stable for discharged to Rehab. Pain control. Placement secured, to leave [place] today for [facility]. Qualifiers: Encounter type: initial encounter Fracture type: closed Fracture morphology: comminuted Fracture alignment: displaced Qualified Code(s): S72.352A - Displaced comminuted fracture of shaft of left femur, initial encounter for closed fracture (2) Anemia Status: Acute Assessment and plan: Hb trended down post up but stabelized > 10 Can continue to monitor Qualifiers: Anemia type: unspecified type Qualified Code(s): D64.9 - Anemia, unspecified - Time Spent With Patient Total time spent is greater than 50% in coordination of care (as documented) at patient's floor/unit and/or counseling patient: - Subjective Interval history: Reports feeling pain over site of fracture but otherwise feels fine - Constitutional Vitals: Temp Pulse Resp BP Pulse Ox 97.9 F 93 16 142/90 97 04/30/18 12:54 04/30/18 12:54 04/30/18 12:54 04/30/18 12:54 04/30/18 12:54 General: Alert and oriented. Minimal discomfort. Skin: Normal color, no rash, no lesions. HEENT: EOMI, pupils equal, round and reactive. Cardiovascular: Regular rate, regular rythm. No murmurs appreciated. Lungs:Normal breath sounds, no wheezes or crackles. Abdomen:Soft, non-tender, no rigidity. Extremities:No deformity, no edema or tenderness, L. surgical site with dressing clean dry and intact. Neurological:Normal cognition, no weakness, no numbness. Rest of the physical exam is non contributory General appearance: Present: cooperative, A&O X 3, pleasant, no acute distress, answers questions appropriately Internal Medicine: Result - Labs CBC & Chem 7: 04/30/18 01:41 04/30/18 01:41 Labs: Short CBC 04/30/18 Range/Units 01:41 WBC 10.1 (4.3-11.1) K/mcL Hgb 10.6 L (11.5-15.4) g/dL Hct 31.8 L (35.3-44.9) % Plt Count 204 (140-400) K/mcL Neutrophils # 6.6 (1.6-8.9) K/mcL BMP 04/30/18 01:41 Sodium 135 L Potassium 4.0 Chloride 100 Carbon Dioxide 28 BUN 16 Creatinine 0.67 Glucose 140 H Calcium 9.0 - ABG Interpretation ABG results: PT/INR, D-dimer PT 11.9 Seconds (9.4-12.1) 04/25/18 21:04 - VTE Documentation of Mechanical Device: Intermittent pneumatic compression device Consult Discharge Plan - Plan Additional Instructions: Follow up with acute rehab physician in 2-3 days after discharge. Recheck BMP and CBC at that time. Follow up with orthopedic surgery as directed. Referrals: Carmen Hernandez MD [Primary Care Provider] - Prescriptions: OxyCODONE Immed Rel [Roxicodone 5 MG] 5 mg PO Q4HR PRN 4 Days #24 tablet PRN Reason: Severe Pain Ibuprofen [Motrin] 600 mg PO Q6HR PRN 4 Days #16 tablet PRN Reason: Mild Pain/Fever
== END 2018-04-30 13:06 | DRG 482 ==
LOC: 3NENU 18:18 → EMEROO 18:18 → 3NENU 20:35 → SUATTDRO 04-27 18:54
PROVIDERS: ADMIT Pediatrics; ATTEND Student in an Organized Health Care Education/Training Program